=== PATIENT | male | born 1975 | race Caucasian/White ===

== ENCOUNTER 2017-08-16 14:54 | Emergency (ER) | payer OTHER ==
[~2017-08-16] VITALS: Ht 180.3 cm; Wt 129.3 kg
[2017-08-16] MEDS ORDERED: HYDR-548 PO (15:30)
--- NOTE | 2017-08-16 15:30 | NUR ---
Pt was triaged and placed in ER waiting room as there are no ER beds available at this time.
--- NOTE | 2017-08-16 17:55 | NUR ---
[employer] Grade Teacher assumes care, 1st contact with patient, AOx4, ambulatory with steady gait, +feelings of anxiety, respiration easy, calm & cooperative
--- NOTE | 2017-08-16 18:00 | NUR ---
Pending MD evaluation, no acute change in condition seen, bruce's girlfriend is at bedside
--- NOTE | 2017-08-16 18:21 | NUR ---
Patient's girlfriend wants to take the patient out of our ER department despite multiple explanation for reasons for delay, notified.
== END 2017-08-16 18:48 | disposition left against medical advice (07) ==
LOC: ER 14:55
DX: Z75.3 Unavailability and inaccessibility of health-care facilities (principal)
CPT/HCPCS: A4663